=== PATIENT | female | born 1955 ===

== ENCOUNTER 2022-11-22 08:41 | Day surgery (SDC) | payer OTHER, SELFPAY ==
--- NOTE | 2022-11-22 07:13 | W.PREOPHP ---
Assessment and Plan Assessment and plan (1) Cortical cataract of right eye: Status: Acute Assessment and plan: Assessment: Visually significant cataract of the right eye. Plan: Cataract extraction with lens implantation of the right eye. (2) Nuclear sclerotic cataract of right eye: Status: Acute Assessment and plan: Assessment: Visually significant cataract of the right eye. Plan: Cataract extraction with lens implantation of the right eye. History of Present Illness History of Present Illness Chief Complaint: Progressive decreased vision, right eye Narrative: Patient is a 67-year-old lady with history of diminished visual acuity in her right eye secondary to the development of nuclear and cortical cataract. She has decreased vision at both distance and near and significantly symptomatic. She is noted to have moderate nuclear and cortical cataract. The option of cataract surgery was offered to the patient and she wished to proceed. Review of Systems All systems reviewed & are unremarkable except as noted in HPI and below PFSH All Active Problems Cortical cataract of right eye (Acute) Nuclear sclerotic cataract of right eye (Acute) Medical History Allergic rhinitis Nieves's esophagus with dysplasia, unspecified Bursitis of both hips Cataracts, bilateral Closed fracture of glenoid process of scapula COPD (chronic obstructive pulmonary disease) GI bleeding Hyperlipidemia Lumbar radiculopathy TERRANCE (obstructive sleep apnea) Osteoporosis MATT (stress urinary incontinence, female) Vitamin B12 deficiency Surgical History History of carpal tunnel release of both wrists History of lumbar surgery fusions L3-5, titanium hardware Hx of fusion of cervical spine c5-6 S/P trigger finger release right Social History Smoking/Tobacco Use Status: Former Tobacco Use Quit Date: 10/24/02 Smoking risk assessment performed?: Yes Alcohol Intake: never Substance use type: does not use Do you feel safe at home: Yes Do you feel safe in your relationship?: Yes Meds Allergies and Home Medications Allergies Allergy/AdvReac Type Severity Reaction Status Date / Time hydrocodone [From Vicodin] Allergy Severe Itching Verified 11/22/22 09:05 Home Medications Medication Instructions Recorded Confirmed Type albuterol sulfate 90 mcg/actuation 1 inh inhalation PRN PRN 09/08/22 11/19/22 History aerosol inhaler (ProAir HFA) cholecalciferol (vitamin D3) 25 1,000 unit PO DAILY 09/08/22 11/22/22 History mcg (1,000 unit) tablet (Vitamin D3) denosumab 60 mg/mL subcutaneous 60 mg subcut [id number] 09/08/22 11/22/22 History syringe (Prolia) fluticasone 250 mcg-salmeterol 50 1 inh inhalation BID 09/08/22 11/22/22 History mcg/dose blistr powdr for inhalation (Advair Diskus) guaifenesin 400 mg tablet 400 mg PO QID PRN 09/08/22 11/19/22 History loratadine 10 mg tablet 10 mg PO DAILY 09/08/22 11/22/22 History magnesium 200 mg tablet 200 mg PO DAILY 09/08/22 11/22/22 History montelukast 10 mg tablet 10 mg PO HS 09/08/22 11/22/22 History jgezpmqg-lfm-kiahkw 5 mg-zeaxanth 1 cap PO DAILY 09/08/22 11/22/22 History 1 mg-bilberry 7.5 mg-herbal capsule (Macular Health Formula) omeprazole 40 mg capsule,delayed 40 mg PO HS 09/08/22 11/22/22 History release simvastatin 10 mg tablet 10 mg PO QHS 09/08/22 11/22/22 History simvastatin 40 mg tablet 40 mg PO HS 09/08/22 11/22/22 History tiotropium bromide 18 mcg capsule 1 cap inhalation DAILY 09/08/22 11/22/22 History with inhalation device (Spiriva with HandiHaler) Exam Eyes Other: Uncorrected visual acuity is 20/125 right eye, 20/20 left eye. Intraocular pressure is 12 OD, 13 OS. Extraocular motility is normal. Disc cupping of 0.4 OU. Slit-lamp examination is significant for moderate nuclear/cortical cataract in the right eye. A milder nuclear/cortical cataract is present in the left eye. Funduscopic examination reveals normal vessels, macula, peripheral retina and vitreous. A choroidal nevus is present in the right eye. No diabetic retinopathy is present. Resp Auscultation: clear to auscultation bilaterally Cardio Rate: regular rate Rhythm: regular rhythm
--- NOTE | 2022-11-22 08:28 | ANES.PREOP_ITS ---
General Info Date of Service Date Performed: 11/22/22 Height: 5 ft 6 in Weight: 124.7 kg Body Mass Index (BMI): 44.4 Surgical Procedure: Operation Date: 11/22/22 10:40 Proposed Procedure Side Surgeon p Cataract Extraction with IOL Implant Right Polo Da Silva MD Meds Allergies and Home Medications Allergies Allergy/AdvReac Type Severity Reaction Status Date / Time hydrocodone [From Vicodin] Allergy Severe Itching Verified 11/22/22 09:05 Home Medication Medication Instructions Recorded albuterol sulfate 90 mcg/actuation 1 inh inhalation PRN PRN 09/08/22 aerosol inhaler (ProAir HFA) cholecalciferol (vitamin D3) 25 1,000 unit PO DAILY 09/08/22 mcg (1,000 unit) tablet (Vitamin D3) denosumab 60 mg/mL subcutaneous 60 mg subcut [id number] 09/08/22 syringe (Prolia) fluticasone 250 mcg-salmeterol 50 1 inh inhalation BID 09/08/22 mcg/dose blistr powdr for inhalation (Advair Diskus) guaifenesin 400 mg tablet 400 mg PO QID PRN 09/08/22 loratadine 10 mg tablet 10 mg PO DAILY 09/08/22 magnesium 200 mg tablet 200 mg PO DAILY 09/08/22 montelukast 10 mg tablet 10 mg PO HS 09/08/22 azirnvud-lhy-teucwo 5 mg-zeaxanth 1 cap PO DAILY 09/08/22 1 mg-bilberry 7.5 mg-herbal capsule (Macular Health Formula) omeprazole 40 mg capsule,delayed 40 mg PO HS 09/08/22 release simvastatin 10 mg tablet 10 mg PO QHS 09/08/22 simvastatin 40 mg tablet 40 mg PO HS 09/08/22 tiotropium bromide 18 mcg capsule 1 cap inhalation DAILY 09/08/22 with inhalation device (Spiriva with HandiHaler) Current Visit Medications: Current Medications Generic Name Dose Route Start Last Admin Trade Name Freq PRN Reason Stop Dose Admin Acetaminophen 1,000 mg 11/22/22 06:00 Acetaminophen 500 Mg Tab PO Q4H PRN PRN Miscellaneous Medication 0 ml 11/22/22 06:00 Prednisolone 1%, Moxifloxacin 0.5%, Nepafenac 0.1% 5ml Btl OD DIRECTED IRISH Miscellaneous Medication 0 ml 11/22/22 06:00 Tropicam./Phenyleph. (1/2.5%) 5 Ml Btl OD DIRECTED [facility] Tetracaine HCl 0 ml 11/22/22 06:00 Tetracaine 0.5% 4 Ml Btl OD DIRECTED [facility] PFSH Active Problems Active Problems: Problem Status Onset Code Cortical cataract of right eye H26.9 Nuclear sclerotic cataract of right eye H25.11 Medical History Medical History Allergic rhinitis Nieves's esophagus with dysplasia, unspecified Bursitis of both hips Cataracts, bilateral Closed fracture of glenoid process of scapula COPD (chronic obstructive pulmonary disease) GI bleeding Hyperlipidemia Lumbar radiculopathy TERRANCE (obstructive sleep apnea) Osteoporosis MATT (stress urinary incontinence, female) Vitamin B12 deficiency Surgical History Surgical History History of carpal tunnel release of both wrists History of lumbar surgery fusions L3-5, titanium hardware Hx of fusion of cervical spine c5-6 S/P trigger finger release right Tobacco Smoking/Tobacco Use Status: Former Tobacco Use Alcohol Alcohol Intake: never Substance Use Substance use type: does not use Vital Signs and Lab Results Lab Results Blood Type / Crossmatch: No Data to Display Complete Blood Count: No Data to Display Complete Metabolic Panel: No Data to Display Liver Function Panel: No Data to Display Coagulation Panel: No Data to Display Cardiac Panel: No Data to Display Arterial Blood Gas: No Data to Display Venous Blood Gas: No Data to Display Pancreas Panel: No Data to Display Thyroid Panel: No Data to Display Infectious Disease: No Data to Display Blood Cultures: No Data to Display Toxicology Panel: No Data to Display Anesthesia Assessment and Plan Anesthesia History Personal History: No History of Anesthesia Complications Family History: No Family History of Anesthesia Complications Exercise Tolerance Exercise Tolerance: Metabolic Equivalents>4 Pertinent Negatives Pertinent Negatives: No Symptoms of GERD, No Major Cardiovascular Symptoms or Complaints and No History of CVA/TIA Cardiac & Pulmonary Exam Cardiac Exam: Normal S1/S2 Heart Sounds Pulmonary Exam: Clear Bilateral Breath Sounds Cardiac and Pulmonary Comment:: Does not use CPAP Implantable Cardiac Device Does patient have a Pacemaker or an ICD?: No Airway Exam Known Difficult Airway: No Mallampati Class: 3 Mouth Opening: Normal (> 3cm) Thyromental Distance: Greater than 3 cm Neck Range of Motion: Full ROM Neck Circumference: Normal Teeth Condition: Normal Dentition and Loose or Chipped (indicated one tooth upp er right) Airway Comments: Cervical fusion, however, demonstrated full CROM without discomfort. ASA Classification ASA Score: ASA 3 Emergency Case?: No NPO Status NPO Status: NPO Clears >2 hours, Solids >8 hours Anesthesia Plan Resuscitation Status: Full Code Anesthesia Technique: MAC Anesthesia Airway Planned: Natural Airway Monitors Used: Standard Monitors Preoperative Comments:: Requesting MKO: main concern is being tied down. Past Cervical fusion and Lumbar fusion.
[2022-11-22 08:55] VITALS: BP 146/86; PULSE 82; RESP 18; TEMP 36.8; O2SAT 95
[2022-11-22] MEDS: Tropicam./Phenyleph. (1/2.5%) 5 ML BTL OD ×3 (09:03→09:16)
[2022-11-22 10:19] VITALS: BMI 44.4
[2022-11-22] MEDS: Tetracaine 0.5% 4 ML BTL OD (10:31)
[2022-11-22] MEDS: Balanced Salt Soln.-PLUS 500 ML BAG (10:36)
[2022-11-22] MEDS: Duovisc Viscoelastic System EACH 1 EACH (10:37)
[2022-11-22] MEDS: Lidocaine 1% Pres-Free 5 ML VIAL (10:37)
[2022-11-22] MEDS: Povidone-Iodine Ophth 30 ML BTL (10:39)
[2022-11-22] MEDS: Lidocaine 2% Jelly 6 ML SYR (10:40)
[2022-11-22] MEDS: Trypan Blue 0.06% 0.5 ML SYR (10:40)
[2022-11-22 10:54] VITALS: BP 118/82; PULSE 74; RESP 16; TEMP 36.7; O2SAT 94
--- NOTE | 2022-11-22 10:54 | W.PM.DSUDISC ---
Date of service: 11/22/22 Time of Service: 10:54 Discharge Plan Disposition Patient Disposition: Home Discharge Details Attending Provider: Polo Da Silva Primary Care Provider: Chante Love Home Meds and New Rx's Prescriptions: No Action fluticasone propion-salmeterol [Advair Diskus] 250-50 mcg/dose Blister With Device 1 inh INHALATION BID omeprazole 40 mg Capsule,Delayed Release(Dr/Ec) 40 mg PO HS simvastatin 40 mg Tablet 40 mg PO HS montelukast 10 mg Tablet 10 mg PO HS albuterol sulfate [ProAir HFA] 90 mcg/actuation Hfa Aerosol Inhaler 1 inh INHALATION PRN PRN loratadine 10 mg Tablet 10 mg PO DAILY guaifenesin 400 mg Tablet 400 mg PO QID PRN Spiriva with HandiHaler 18 mcg Capsule, W/Inhalation Device 1 cap INHALATION DAILY Rx Instructions: puncture 1 cap using device; one dose = 2 inhalations simvastatin 10 mg Tablet 10 mg PO QHS magnesium 200 mg Tablet 200 mg PO DAILY cholecalciferol (vitamin D3) [Vitamin D3] 25 mcg (1,000 unit) Tablet 1,000 unit PO DAILY Prolia 60 mg/mL Syringe 60 mg SUBCUT [id number] Macular Health Formula 5-1-7.5 mg Capsule 1 cap PO DAILY Discharge Instructions Stand Alone Forms: Post-op Topical Cataract, Twin Price (DSU) Discharge Orders Discharge Orders: Discharge Order (Routine); Ordered 11/22/22 Ordered By: Polo Da Silva DS: Diagnosis Discharge Diagnosis (1) Cortical cataract of right eye: Status: Resolved (2) Nuclear sclerotic cataract of right eye: Status: Resolved
--- NOTE | 2022-11-22 10:55 | W.PM.OP ---
Date of service: 11/22/22 Time of Service: 10:55 Operative Note Operative Note DATE OF PROCEDURE: 11/22/22 PRE-OP DIAGNOSIS: Nuclear/cortical cataract, right eye POST-OP DIAGNOSIS: same PROCEDURE: Cataract extraction using phacoemulsification with intraocular lens implant, right eye SURGEON: Polo Da Silva ANESTHESIA TYPE: Local By Surgeon and MAC Refer to Anesthesia Record ESTIMATED BLOOD LOSS: 0 PATHOLOGY: none sent COMPLICATIONS: None Patient was transported to: same day Patient's condition: stable Implants: Buzz & Buzz Tecnis Eyhance [id number] Indications: Progressive visual loss due to cataract, right eye Procedure Description: CATARACT SURGERY OPERATIVE REPORT PREOPERATIVE DIAGNOSIS: 1. Nuclear/cortical cataract, right eye POSTOPERATIVE DIAGNOSIS: Same OPERATION: 1. Cataract extraction using phacoemulsification with posterior chamber intraocular lens implant, right eye. IOL: IOL Early Childhood Special Educator/Model: Buzz & Buzz Tecnis Eyhance DIB00 IOL Power: + 19.5 diopters IOL Serial Number: [id number] Optic Diameter: 6.0mm Haptic/Overall Diameter: 13.0mm PHACO INFO: RaghavendraBlueRoadsurion Vision System with OZil and Active Fluidics Cumulative Dispersed Energy (CDE): 9.18 seconds SURGEON: Polo Da Silva MD, HANNAH ANESTHESIA: Monitored Anesthesia Care (MAC), with local sub-tenon's anesthetic infiltration COMPLICATIONS: None SPECIMENS: None INDICATIONS FOR PROCEDURE: Patient is a 67-year-old lady with history of diminished visual acuity in her right eye secondary to the development of significant nuclear/cortical cataract. The option of cataract surgery was offered to the patient and she felt she was symptomatic enough that she wished to proceed. PROCEDURE: The correct surgical eye was identified and marked as the right eye and the pupil was dilated in the preoperative area using mydriatics and cycloplegics. The dilated pupil size was 7.0 mm. Oral sedation was administered in the form of an Imprimis MKO Melt (midazolam 3mg/ketamine 25mg/ondansetron 2mg). The patient was brought to the operating room where cardiopulmonary monitoring was instituted and surgical time-out was performed, confirming the correct operative eye and IOL power. Topical anesthesia was administered and ophthalmic povidone-iodine 5% was instilled into the conjunctival fornices. Lidocaine gel was applied to the cornea and the cindy-ocular area was prepped with Betadine 10% solution and draped in the usual sterile fashion for intraocular surgery, including an aperture drape. A Tegaderm transparent film dressing was cut in half and used to cover the lashes and lid margins. Care was taken to sequester the lashes and lid margins under the Tegaderm dressing. A lid speculum was placed between the lids of the operative eye and the Raghavendra LuxOR Revalia operating microscope was maneuvered into position. Ang scissors were then used to make a conjunctival buttonhole approximately 6mm posterior to the limbus in the inferonasal quadrant. Blunt dissection was carried out to expose bare sclera, and a blunt-tipped sub-tenon?s anesthesia cannula was introduced and passed posteriorly along the globe where non-preserved plain lidocaine was injected into posterior sub-Tenon?s space. A sideport knife was used to make a paracentesis port inferotemporally. VisionBlue was then injected into the anterior chamber and allowed to sit for 10 to 12 seconds. Intraocular phenylephrine/lidocaine was injected into the anterior chamber. The anterior chamber was filled with viscoelastic. A keratome knife was used to construct a 2-plane near-clear corneal tunnel extending 2.0mm into clear cornea superiortemporally. A flap was raised on the anterior capsule and capsulorhexis forceps were used to complete a continuous curvilinear capsulorhexis of 5.5 mm. Balanced salt solution was then used to perform cortical cleaving hydrodissection and nuclear hydrodelineation until the lens could be freely rotated within the capsular bag. The lens nucleus was then disassembled and removed within the capsular bag and iris plane using phacoemulsification. Residual cortical material was removed using the I/A handpiece. The posterior capsule was carefully polished to remove as much residual lens epithelial cells as safely possible. The capsular bag was then inflated and the anterior chamber deepened with viscoelastic. The lens implant described above was inserted into the capsular bag using the Buzz and Farzana Simplicity pre-loaded injector. A Kuglen hook was used to dial the IOL into position. Residual viscoelastic was then removed first from posterior to the IOL, then from the anterior chamber using the I/A handpiece. The lens implant was noted to center nicely within the capsular bag. The incisions were stromally hydrated, and the anterior chamber was reformed using BSS. Then 0.5cc of moxifloxacin 1.0mg/ml were injected into the capsular bag and anterior chamber. The incisions were checked with a Weck spear and found to be secure. Several drops of ophthalmic povidone-iodine 5% were then applied to the eye followed by two drops of Imprimis combination prednisolone/moxifloxacin/nepafenac solution. The drapes were removed and a clear plastic protective eye shield was placed over the eye. The patient was then returned to Same Day Surgery in stable condition.
--- NOTE | 2022-11-22 11:14 | W.ANESPOSTOP ---
Postoperative Evaluation Date, Time and Location Date Performed: 11/22/22 Time Performed: 10:54 Patient Location: Day Surgery Unit Vital Signs Most Recent Imported Vital Signs: Most Recent Vital Signs Temp Pulse Resp BP Pulse Ox 36.7 C 74 16 118/82 94 11/22/22 10:54 11/22/22 10:54 11/22/22 10:54 11/22/22 10:54 11/22/22 10:54 Pain Score Most Recent Pain Score: Most Recent Pain Score Pain Level 0 11/22/22 10:54 Assessment Mental Status: Awake (Alert & Oriented to Patient Baseline) Airway and Respiratory Function: Patent airway with normal (patient baseline) respiratory exam Cardiovascular Function: Hemodynamically Stable Hydration Status: Adequately Hydrated Nausea & Vomiting: No Nausea or Vomiting Pain: Pt. Denies Any Pain Peripheral Nerve Block: Other (Local by Dr. Da Silva)
[2022-11-22 11:17] VITALS: BP 123/79; PULSE 76; RESP 16; TEMP 36.7; O2SAT 94
== END 2022-11-22 11:22 | disposition home or self-care (01) ==
PROVIDERS: PCP Internal Medicine; Visit Provider Ophthalmology
PROC: (CPT 66984; principal; 2022-11-22 10:30)
DX: H25.11 Age-related nuclear cataract, right eye (principal)
CPT/HCPCS: 66984; V2632

== ENCOUNTER 2025-03-20 06:07 | Day surgery (SDC) | payer OTHER, SELFPAY ==
--- NOTE | 2025-03-19 18:05 | SCONE_ITS ---
Date of service: 03/20/25 Time of Service: 07:30 Assessment and Plan Assessment and plan (1) Nieves's esophagus without dysplasia: Assessment and plan: 70 yo woman with an incidental PET finding in stomach and also needs Nieves's surveillance. PLAN: EGD History of Present Illness Narrative: Here for EGD - incidental finding on PET. Also remote hx Nieves's. [facility] Medical History Solitary pulmonary nodule (~11/2022) Nieves's esophagus without dysplasia (~10/2023) Upper respiratory infection (~11/2022) Closed fracture of glenoid process of scapula MATT (stress urinary incontinence, female) Vitamin B12 deficiency Osteoporosis TERRANCE (obstructive sleep apnea) Lumbar radiculopathy Hyperlipidemia GI bleeding Allergic rhinitis COPD (chronic obstructive pulmonary disease) Cataracts, bilateral Bursitis of both hips Nieves's esophagus with dysplasia, unspecified Surgical History History of cholecystectomy S/P trigger finger release right History of carpal tunnel release of both wrists Hx of fusion of cervical spine c5-6 History of lumbar surgery fusions L3-5, titanium hardware Social History Smoking/Tobacco Use Status: Former Tobacco Use Quit Date: 10/24/02 Smoking risk assessment performed?: Yes Alcohol Intake: never Substance use type: does not use Housing: house Do you feel safe at home: Yes Do you feel safe in your relationship?: Yes Exam Narrative Exam Narrative: Gen: Non-toxic, comfortable and interactive Neuro: Alert and oriented x3 Psych: Good mood and affect. Good insight and understanding into condition. Chest: Non-labored breathing, no wheezing, no visible shortness of breath. Heart: Regular
--- NOTE | 2025-03-19 18:07 | W.PM.DSUDISC ---
Date of service: 03/20/25 Discharge Plan Disposition Patient Disposition: Home Discharge Details Attending Provider: Don Roach Primary Care Provider: Chante Love Home Meds and New Rx's Prescriptions: No Action simvastatin 40 mg tablet 40 mg PO QHS multivitamin Tablet 1 tab PO DAILY glucosamine HCl 1,500 mg tablet 1,500 mg PO DAILY Rx Instructions: administer with a meal magnesium 200 mg tablet 200 mg PO BID cholecalciferol (vitamin D3) [Vitamin D3] 125 mcg (5,000 unit) tablet 125 mcg PO DAILY (DME) Oxygen Tank See Rx Instructions .Route Patient Comments: pt. reports O2 at 2L at night Rx Instructions: As directed ezetimibe 10 mg tablet 10 mg PO DAILY omeprazole 40 mg Capsule,Delayed Release(Dr/Ec) 40 mg PO HS albuterol sulfate [ProAir HFA] 90 mcg/actuation Hfa Aerosol Inhaler 1 inh INHALATION PRN PRN Prolia 60 mg/mL Syringe 60 mg SUBCUT [id number] Alive Calcium-Vitamin D3-K2 300 mg-25 mcg- 66 mg-37.5 mcg tablet 1 tab PO DAILY montelukast 10 mg tablet acetaminophen [Acetaminophen Extra Strength] 500 mg tablet 500 mg PO ONCE Patient Comments: 1500 mg taken Discharge Instructions Additional Instructions: FINDINGS: You do not have Nieves's esophagus. You do not need to do any other EGDs. There were no findings of concern in your stomach. Uncertain why the PET scan showed what it did but there is nothing to worry about in the stomach. You do have some bile reflux but this is a common condition and there is no clear management or treatment pathway for this condition. The symptoms from this are variable and are usually mild. Activity:: Activity as Tolerated Diet:: As Tolerated Discharge Orders Discharge Orders: Discharge Order (Routine); Ordered 03/19/25 Ordered By: Don Roach
--- NOTE | 2025-03-19 18:08 | W.PM.ENDDOP ---
Date of service: 03/20/25 Time of Service: 07:40 Endoscopy Report PROCEDURE DESCRIPTION: Procedure: esophagogastroduodenoscopy with cold forcep biopsies Pre-op Diagnosis: Nieves's esophagus Post-op Diagnosis: Bile reflux gastropathy, hiatal hernia (small, type I, Hill grade 2) Surgeon: India Roach Assist: None Anesthesia: Anesthesia Monitoring INDICATION: Patient with history of Nieves's esophagus and an incidental finding on PET -CT warranting EGD of stomach. FINDINGS: Duodenum(D3, D2, D1) = normal Pylorus = normal, no bile seen refluxing Antrum = mildly inflamed. Cold forceps biopsies were taken routinely and sent for H. pylori assessment and histology assessment. No lesions or concerning findings. Body = grossly normal in appearance except for the presence of bile, pooled in the stomach(consistent with bile reflux diagnosis). No lesions or concerning findings. Fundus = grossly normal in appearance except for the presence of specks of bile and some bile pooled. No lesions or concerning findings. Hiatus/GE junction = Hill grade 2 hiatal defect. A small type I sliding hiatal hernia is present. Herniates about 1 cm. Distal esophagus = there is no visibly active esophagitis. There is no Nieves's esophagus. Cold forceps biopsies were taken routinely. Mid-esophagus = normal appearance, no inflammation. The proximal/cervical esophagus, hypopharynx and cords were all grossly normal in appearance. Complications: None EBL: Minimal SURVEILLANCE/FOLLOW?UP RECOMMENDATIONS: Follow-up with PCP. Does not need surveillance EGD anymore in the future. Not eligible for hiatal hernia repair with a BMI of 43 Specimens removed: Yes Grafts or implants: None Procedure in detail: Written consent was obtained from the patient who was in agreement with the risks, benefits and indications for the procedure. The patient was taken to the endoscopy suite and laid in the left lateral decubitus position. We performed a timeout. When we were all in agreement anesthesia was administered and I began the procedure. The endoscope was easily passed down into the stomach, through a patent pylorus and into D3. The findings and interventions and diagnostics are noted above. The endoscope was removed, the patient tolerated the procedure well and was then taken to the PACU in hemodynamically stable condition.
[2025-03-20 06:28] VITALS: BP 124/94; PULSE 76; RESP 20; TEMP 36.2; O2SAT 95
[2025-03-20] MEDS: Lactated Ringers 1,000 ML 80 ML IV (06:45)
--- NOTE | 2025-03-20 07:02 | W.ANESPRE ---
General Info Date of Service Date Performed: 03/20/25 Height: 5 ft 6 in Weight: 120.2 kg Body Mass Index (BMI): 42.7 Surgical Procedure: Operation Date: 03/20/25 07:35 Proposed Procedure Side Surgeon p Gastroscopy Don Roach MD Actual Procedure Side Surgeon p Gastroscopy Not Applicable Don Roach MD Meds Allergies and Home Medications Allergies Allergy/AdvReac Type Severity Reaction Status Date / Time hydrocodone (From Vicodin) Allergy Severe Itching Verified 03/20/25 06:30 Home Medication ?Medication ?Instructions ?Recorded albuterol sulfate 90 mcg/actuation 1 inh inhalation PRN PRN 09/08/22 aerosol inhaler (ProAir HFA) denosumab 60 mg/mL subcutaneous 60 mg subcut [id number] 09/08/22 syringe (Prolia) omeprazole 40 mg capsule,delayed 40 mg PO HS 09/08/22 release ezetimibe 10 mg tablet 10 mg PO DAILY 02/04/25 Oxygen 02/07/25 cholecalciferol (vitamin D3) 125 125 mcg PO DAILY 02/07/25 mcg (5,000 unit) tablet (Vitamin D3) glucosamine HCl 1,500 mg tablet 1,500 mg PO DAILY 02/07/25 magnesium 200 mg tablet 200 mg PO BID 02/07/25 multivitamin 1 tab PO DAILY 02/07/25 simvastatin 40 mg tablet 40 mg PO QHS 02/07/25 calcium 300 mg-D3 25 mcg-magnesium 1 tab PO DAILY 03/15/25 66 mg-K2 37.5 mcg-herbal tablet (Alive Calcium-Vitamin D3-K2) acetaminophen 500 mg tablet 500 mg PO ONCE 03/20/25 (Acetaminophen Extra Strength) montelukast 10 mg tablet mg 03/20/25 Current Visit Medications: Current Medications Generic Name Dose Route Start Last Admin Trade Name Freq PRN Reason Stop Dose Admin Ringer's Solution 1,000 mls @ 80 mls/hr 03/20/25 06:00 03/20/25 06:45 IV 03/20/25 23:59 80 mls/hr INFUSION IRISH Administration IV Miscellaneous Supplies 1 each 03/20/25 06:00 Iv Access IV 03/20/25 23:59 DIRECTED IRISH Sodium Chloride 0 ml 03/20/25 06:00 Normal Saline Flush 10 Ml Syr IV 03/20/25 23:59 PRN PRN Sodium Chloride 0 ml 03/20/25 06:00 Normal Saline 10 Ml Vial IJ 03/20/25 23:59 DIRECTED PRN Sterile Water 0 ml 03/20/25 06:00 Water,Injection,Sterile 10 Ml Vial IJ 03/20/25 23:59 DIRECTED PRN PFSH Active Problems Active Problems: Problem Status Onset Code Cortical cataract of right eye Resolved H26.9 Nuclear sclerotic cataract of right eye Resolved H25.11 Medical History Medical History Solitary pulmonary nodule (~11/2022) Nieves's esophagus without dysplasia (~10/2023) Upper respiratory infection (~11/2022) Closed fracture of glenoid process of scapula MATT (stress urinary incontinence, female) Vitamin B12 deficiency Osteoporosis TERRANCE (obstructive sleep apnea) Lumbar radiculopathy Hyperlipidemia GI bleeding Allergic rhinitis COPD (chronic obstructive pulmonary disease) Cataracts, bilateral Bursitis of both hips Nieves's esophagus with dysplasia, unspecified Surgical History Surgical History History of cholecystectomy S/P trigger finger release right History of carpal tunnel release of both wrists Hx of fusion of cervical spine c5-6 History of lumbar surgery fusions L3-5, titanium hardware Tobacco Smoking/Tobacco Use Status: Former Tobacco Use Alcohol Alcohol Intake: never Substance Use Substance use type: does not use Vital Signs and Lab Results Vital Signs Most Recent Vital Signs in EMR: Most Recent Vital Signs Temp Pulse Resp BP Pulse Ox 36.2 C L 76 20 124/94 H 95 03/20/25 06:28 03/20/25 06:28 03/20/25 06:28 03/20/25 06:28 03/20/25 06:28 Lab Results Blood Type / Crossmatch: No Data to Display Complete Blood Count: No Data to Display Complete Metabolic Panel: No Data to Display Liver Function Panel: No Data to Display Coagulation Panel: No Data to Display Cardiac Panel: No Data to Display Arterial Blood Gas: No Data to Display Venous Blood Gas: No Data to Display Pancreas Panel: No Data to Display Thyroid Panel: No Data to Display Infectious Disease: No Data to Display Blood Cultures: No Data to Display Toxicology Panel: No Data to Display Anesthesia Assessment and Plan Anesthesia History Personal History: No History of Anesthesia Complications Family History: No Family History of Anesthesia Complications Exercise Tolerance Exercise Tolerance: Metabolic Equivalents>4 Pertinent Negatives Pertinent Negatives: Other (Baretts) Cardiac & Pulmonary Exam Cardiac Exam: Normal S1/S2 Heart Sounds Pulmonary Exam: Clear Bilateral Breath Sounds Implantable Cardiac Device Does patient have a Pacemaker or an ICD?: No Airway Exam Known Difficult Airway: No Mallampati Class: 3 Mouth Opening: Normal (> 3cm) Thyromental Distance: Greater than 3 cm Neck Range of Motion: Full ROM Neck Circumference: Normal Teeth Condition: Normal Dentition and Loose or Chipped (indicated one tooth upper right) Airway Comments: Cervical fusion, however, demonstrated full CROM without discomfort. ASA Classification ASA Score: ASA 3 Emergency Case?: No NPO Status NPO Status: NPO Clears >2 hours, Solids >8 hours Anesthesia Plan Resuscitation Status: Full Code Anesthesia Technique: General Anesthesia (FM) Airway Planned: Natural Airway Monitors Used: Standard Monitors
[2025-03-20 07:06] VITALS: BMI 42.7
--- NOTE | 2025-03-20 07:43 | STOM_PTH ---
PATIENT: Park Delgadillo LOC: [facility] U#:[id number] AGE/SX: 70/F ROOM: RE03/20/[address]: Don Roach : 1955 BED: DIS: 03/20/2025 SPEC #: [id number] RECD: 03/20/25 12:48 STATUS: JUAN LUIS RE #: [id number] BONITA: 03/20/25 07:[address]: Don Roach DEPT: Surgical Specimen RECD BY: Taryn Oviedo ENTERED: 03/20/25 12:49 SP TYPE: STOMACH OTHR DR: Chante Love Tissues: 1 - STOMACH BIOPSY 2 - ESOPHAGUS BIOPSY Procedures: GROSS AND MICRO LEVEL 4 Comments: [id number]
--- NOTE | 2025-03-20 08:06 | W.ANESPOSTOP ---
Postoperative Evaluation Date, Time and Location Date Performed: 03/20/25 Time Performed: 08:06 Patient Location: Day Surgery Unit Vital Signs Most Recent Imported Vital Signs: Most Recent Vital Signs Temp Pulse Resp BP Pulse Ox 36.2 C L 76 20 124/94 H 95 03/20/25 06:28 03/20/25 06:28 03/20/25 06:28 03/20/25 06:28 03/20/25 06:28 Pain Score Most Recent Pain Score: Most Recent Pain Score Pain Level 0 03/20/25 06:28 Assessment Mental Status: Awake (Alert & Oriented to Patient Baseline) Airway and Respiratory Function: Patent airway with normal (patient baseline) respiratory exam Cardiovascular Function: Hemodynamically Stable Hydration Status: Adequately Hydrated Nausea & Vomiting: No Nausea or Vomiting Pain: Pt. Denies Any Pain Peripheral Nerve Block: Patient did not receive a nerve block
[2025-03-20 08:08] VITALS: BP 139/63; PULSE 72; RESP 16; TEMP 36.3; O2SAT 95
[2025-03-20 08:25] VITALS: BP 115/83; PULSE 65; RESP 16; TEMP 36.2; O2SAT 96
== END 2025-03-20 08:40 | disposition home or self-care (01) ==
PROVIDERS: PCP Internal Medicine; Visit Provider Student in an Organized Health Care Education/Training Program
PROC: 0DJ68ZZ Inspection of Stomach, Via Natural or Artificial Opening Endoscopic (ICD-10-PCS; CPT 43235; principal; 2025-03-20 07:30)
DX: K44.9 Diaphragmatic hernia without obstruction or gangrene; K29.60 Other gastritis without bleeding; K31.9 Disease of stomach and duodenum, unspecified; K22.89 Other specified disease of esophagus
CPT/HCPCS: 43239; 88305; J2003; J2704